=== PATIENT | female | born 1995 | race Caucasian/White ===

== ENCOUNTER 2022-02-07 10:26 | Outpatient (CLI) | payer OTHER | END 2022-02-07 11:13 | disposition home or self-care (01) | LOC: NST 10:26 | PROVIDERS: ATTEND Obstetrics & Gynecology Maternal & Fetal Medicine | DX: Z34.83 Encounter for supervision of other normal pregnancy, third trimester (principal) ==

== ENCOUNTER 2022-02-14 15:30 | Inpatient (IN) | payer OTHER ==
[~2022-02-14] VITALS: Ht 162.6 cm; Wt 78.9 kg
[2022-02-18] MEDS ORDERED: PRENATAL TABLE1 EAC1 PO (00:10)
== END 2022-02-20 14:26 | disposition home or self-care (01) | DRG 807 ==
LOC: OB/GYN 02-17 15:30 → LDR 02-17 23:46 → OB/GYN 02-18 05:52
PROVIDERS: ADMIT Obstetrics & Gynecology; ATTEND Obstetrics & Gynecology
PROC: 10E0XZZ Delivery of Products of Conception, External Approach (ICD-10-PCS; principal; 2022-02-17)
PROC: 4A1HXCZ Monitoring of Products of Conception, Cardiac Rate, External Approach (ICD-10-PCS; 2022-02-17)
DX: O80 Encounter for full-term uncomplicated delivery (principal); Z37.0 Single live birth; Z3A.40 40 weeks gestation of pregnancy; Z20.822 Contact with and (suspected) exposure to COVID-19

== ENCOUNTER 2023-07-26 15:45 | Inpatient (IN) | payer OTHER ==
[~2023-07-26] VITALS: Ht 160 cm; Wt 74.8 kg
[~2023-07-26 15:45] MED LIST: PRENATAL TABLE1 EAC1 PO
[2023-08-07 21:11] LABS: HEMOGLOBIN 10.6 g/dL (12.0-15.00); MEAN CORPUSCULAR HEMOGLOBIN 23.1 pg (27.00-32.0); MEAN CORPUSCULAR HGB CONC 33.2 g/dl (32.0-36.0); PLATELET COUNT 223 K/uL (150-450); RED CELL DISTRIBUTION WIDTH 15.1 % (11.5-14.5)
[2023-08-07 21:15] LABS: MEAN CELL VOLUME 69.5 fL (80.00-100.00)
[2023-08-08 06:24] LABS: HEMATOCRIT 25.1 % (36.0-45.00); MEAN CORPUSCULAR HGB CONC 33.4 g/dl (32.0-36.0); PLATELET COUNT 205 K/uL (150-450); RED CELL DISTRIBUTION WIDTH 15.1 % (11.5-14.5)
[2023-08-08 06:31] LABS: HEMOGLOBIN 8.4 g/dL (12.0-15.00); MEAN CELL VOLUME 69.8 fL (80.00-100.00); MEAN CORPUSCULAR HEMOGLOBIN 23.3 pg (27.00-32.0)
== END 2023-08-09 14:16 | disposition home or self-care (01) | DRG 807 ==
LOC: OB/GYN → LDR 08-07 19:22 → OB/GYN 08-07 19:22
PROVIDERS: ADMIT Obstetrics & Gynecology; ATTEND Obstetrics & Gynecology
PROC: 10E0XZZ Delivery of Products of Conception, External Approach (ICD-10-PCS; principal; 2023-08-07)
PROC: 0KQM0ZZ Repair Perineum Muscle, Open Approach (ICD-10-PCS; 2023-08-07)
PROC: 4A1HXCZ Monitoring of Products of Conception, Cardiac Rate, External Approach (ICD-10-PCS; 2023-08-07)
DX: O70.1 Second degree perineal laceration during delivery (principal); Z37.0 Single live birth; Z3A.39 39 weeks gestation of pregnancy; Z20.822 Contact with and (suspected) exposure to COVID-19

== ENCOUNTER 2023-08-07 15:43 | Outpatient (CLI) | payer OTHER | END 2023-08-07 17:40 | disposition home or self-care (01) | LOC: NST 15:43 | PROVIDERS: ATTEND Obstetrics & Gynecology | DX: Z34.83 Encounter for supervision of other normal pregnancy, third trimester (principal) ==

== ENCOUNTER 2025-02-24 15:00 | Inpatient (IN) | payer OTHER ==
[~2025-02-24] VITALS: Ht 162.6 cm; Wt 75.3 kg
[2025-03-03] VITALS (8 sets, daily range): BP systolic 110–124; BP diastolic 65–76
[2025-03-03] MEDS ORDERED: OXYTOCIN 20 UNITS/500ML RL PIGGYBAG IV ONE (11:33)
[2025-03-03] MEDS ORDERED: OXYTOCIN 500 ML IV ONE (12:00)
[2025-03-03 12:13] LABS: HEMATOCRIT 29.8 % (36.0-45.00); HEMOGLOBIN 9.5 g/dL (12.0-15.00); MEAN CORPUSCULAR HGB CONC 32.1 g/dl (32.0-36.0); PLATELET COUNT 238 K/uL (150-450); RED BLOOD COUNT 4.78 M/uL (4.00-6.00)
[2025-03-03 12:14] LABS: MEAN CELL VOLUME 62.3 fL (80.00-100.00); RED CELL DISTRIBUTION WIDTH 18.5 % (11.5-14.5)
[2025-03-03] MEDS ORDERED: MORPHINE SULFATE 4 MG/ML VIAL IV STA (12:26)
[2025-03-03 12:28] LABS: INR < 0.93; PARTIAL THROMBOPLASTIN TIME 28.7 SECONDS (22.0-34.0)
[2025-03-03 12:31] LABS: BILIRUBIN TOTAL 0.45 mg/dL (0.3-1.2); CALCIUM 8.5 mg/dL (8.5-10.1); CREATININE SERUM 0.53 mg/dL (0.55-1.02); GFR 135.45; GLOBULINA 3.6 G/DL (2.4-3.5); POTASSIUM 3.28 mEq/L (3.5-5.1); TOTAL PROTEIN 6.6 gm/dL (6.4-8.2)
[2025-03-03] MEDS ORDERED: OXYTOCIN 20 UNITS/1000ML RL PIGGYBAG IV ONE (12:43)
[2025-03-03] MEDS ORDERED: ERYTHROMYCIN BASE OPHT 1GM EACH TUBE OP ONE (12:43)
[2025-03-03] MEDS ORDERED: LIDOCAINE HCL 1% 10ML VIAL ONE (12:44)
[2025-03-03] MEDS ORDERED: CHLORHEXIDINE GLUCONATE 120 ML BOTTLE TOP ONE (12:44)
[2025-03-03] MEDS ORDERED: NALOXONE HCL 0.4 MG/ML AMPUL ONE (14:05)
[2025-03-03] MEDS ORDERED: IBUprofen 400 MG TABLET PO PRN (14:45)
[2025-03-03] MEDS ORDERED: OXYTOCIN 1,000 ML IV SCH (14:45)
[2025-03-03] MEDS ORDERED: OxyCODONE HCL/APAP UD (PERCOCET) PO PRN (14:45)
[2025-03-03] MEDS ORDERED: NALOXONE HCL 0.4 MG/ML AMPUL IV ONE (15:45)
[2025-03-04 01:00] VITALS: BP 103/68
[2025-03-04] MEDS ORDERED: FF) RHO(D) IMMUNE GLOBULIN (POM) IM NR (08:30)
[2025-03-04 08:46] VITALS: BP 116/65; O2SAT 97
[2025-03-04 16:00] VITALS: BP 118/80
[2025-03-05 00:27] VITALS: BP 115/75
[2025-03-05 08:31] VITALS: BP 121/79; O2SAT 98
== END 2025-03-05 10:03 | disposition home or self-care (01) | DRG 807 ==
LOC: OB/GYN 03-01 15:00 → LDR 03-03 10:28 → OB/GYN 03-03 10:28
PROVIDERS: ADMIT Obstetrics & Gynecology; ATTEND Obstetrics & Gynecology
PROC: 10E0XZZ Delivery of Products of Conception, External Approach (ICD-10-PCS; principal; 2025-03-03)
PROC: 0KQM0ZZ Repair Perineum Muscle, Open Approach (ICD-10-PCS; 2025-03-03)
PROC: 4A1HXCZ Monitoring of Products of Conception, Cardiac Rate, External Approach (ICD-10-PCS; 2025-03-03)
DX: O70.1 Second degree perineal laceration during delivery (principal); O69.81X0 Labor and delivery complicated by cord around neck, without compression, not applicable or unspecified; Z37.0 Single live birth; Z3A.40 40 weeks gestation of pregnancy

== ENCOUNTER 2025-02-24 15:19 | Outpatient (CLI) | payer OTHER | END 2025-02-24 16:20 | disposition home or self-care (01) | LOC: NST 15:19 | PROVIDERS: ATTEND Obstetrics & Gynecology | DX: Z34.83 Encounter for supervision of other normal pregnancy, third trimester (principal) ==